=== PATIENT | female | born 1990 | race Caucasian/White ===

== ENCOUNTER 2016-06-02 20:06 | Emergency (ER) | payer OTHER ==
[~2016-06-02] VITALS: Ht 160 cm; Wt 59.1 kg
[2016-06-02 20:08] VITALS: TEMP 97.8
[2016-06-02] MEDS ORDERED: PRENATAL1 TA7 PO (20:12)
[2016-06-02] MEDS ORDERED: ZYRTEC ALLERGY10 MG PO (20:13)
[2016-06-02 20:51] LABS: BASO # 0.1 (0.0-0.2); BASO % 0.9 % (0.0-2.0); EOS # 0.5 (0.0-0.7); EOS % 3.6 % (0-4.0); GRAN # 7.4 (1.4-6.5); GRAN % 58.5 % (42.2-75.2); HEMATOCRIT 41.8 % (37.0-47.0); HEMOGLOBIN 14.1 g/dl (12.5-16.0); LYMPH # 3.7 (1.2-3.4); LYMPH % 29.3 % (20.0-51.0); MEAN CELL VOLUME 91 fl (80.0-100.0); MEAN CORPUSCULAR HEMOGLOBIN 31 pg (27.0-31.0); MEAN CORPUSCULAR HGB CONC 34 g/dl (33.0-37.0); MEAN PLATELET VOLUME 11.3 fl (7.4-10.4); MONO % 7.5 % (1.7-9.3); PLATELET COUNT 260 K/mm3 (130-400); RED BLOOD COUNT 4.59 M/mm3 (4.10-5.30); REDCELL DISTRIBUTION WIDTH-CV 11.9 % (11.5-14.5); WHITE BLOOD COUNT 12.7 K/mm3 (4.8-10.8)
[2016-06-02 21:09] LABS: ADJUSTED CALCIUM 9.5 mg/dL (8.4-10.2); ALANINE AMINOTRANSFERASE 36 U/L (9-52); ALBUMIN 4.4 gm/dL (3.5-5.0); ALKALINE PHOSPHATASE 69 U/L (50-136); ANION GAP 11 mmol/L (7-16); BILIRUBIN,TOTAL 0.7 mg/dL (0.0-1.0); BLOOD UREA NITROGEN 11 mg/dL (7-17); C-REACTIVE PROTEIN < 0.5 mg/dL (0.0-0.9); CALCIUM 9.8 mg/dL (8.4-10.2); CARBON DIOXIDE 27 mmol/L (22-30); CHLORIDE 101 mmol/L (98-107); CREATININE, serum 0.78 mg/dL (0.52-1.25); GLUCOSE 105 mg/dL (74-106); LIPASE 69 U/L (23-300); SODIUM 139 mmol/L (137-145); TOTAL PROTEIN 7.5 gm/dL (6.4-8.2)
[2016-06-02 21:41] LABS: PH 7 (5-8); SQUAMOUS EPITHELIAL 0-2 /hpf; URINE APPEARANCE Cloudy; URINE BACTERIA Rare /hpf; URINE BILIRUBIN Negative (NEGATIVE); URINE BLOOD 2+ (NEGATIVE); URINE COLOR Yellow; URINE GLUCOSE Negative (NEGATIVE); URINE KETONE Negative (NEGATIVE); URINE UROBILINOGEN Negative (NEGATIVE)
[2016-06-02] MEDS ORDERED: FLOMAX 0.40.4 MG/CAP PO (22:05)
[2016-06-02] MEDS ORDERED: CIPRO 500MG TA500 MG PO (22:05)
[2016-06-02] MEDS ORDERED: PERCOCET 325 MG1 TA2 PO (22:05)
[2016-06-02] MEDS ORDERED: ZOFRAN 4MG T4 MG/TAB PO (22:05)
[2016-06-02 22:21] VITALS: BP 125/86; PULSE 62
== END 2016-06-02 22:23 | disposition home or self-care (01) ==
LOC: COL.ER 20:06
PROVIDERS: Emergency Medicine
DX: N13.2 Hydronephrosis with renal and ureteral calculous obstruction (principal)
CPT/HCPCS: J1170; J1885; J2405; J7030; Q9967

== ENCOUNTER 2016-07-12 11:23 | Day surgery (SDC) | payer OTHER ==
[~2016-07-12] VITALS: Ht 160 cm; Wt 50.4 kg
[~2016-07-12 11:23] MED LIST: CIPRO 500MG TA500 MG PO; FLOMAX 0.40.4 MG/CAP PO; PERCOCET 325 MG1 TA2 PO; PRENATAL1 TA7 PO; ZOFRAN 4MG T4 MG/TAB PO; ZYRTEC ALLERGY10 MG PO
[2016-07-12 12:10] VITALS: BP 94/55; PULSE 68; TEMP 97.3
[2016-07-12] MEDS ORDERED: NORCO 325 MG-51 TAB PO (12:19)
[2016-07-12] MEDS ORDERED: IRON TABLETS325 MG PO (12:21)
[2016-07-12 15:30] VITALS: BP 104/67; PULSE 57; TEMP 97.7
[2016-07-12 15:44] VITALS: TEMP 99.5
[2016-07-12 15:45] VITALS: BP 108/54; PULSE 57
[2016-07-12 16:00] VITALS: BP 112/63; PULSE 59
== END 2016-07-12 16:15 | disposition home or self-care (01) ==
LOC: SDCO 11:23
DX: N20.1 Calculus of ureter (principal); F17.210 Nicotine dependence, cigarettes, uncomplicated
CPT/HCPCS: C1769; C2617; J0690; J1100; J1940; J2270; J2405; J2704; J3010; J7120; Q9967

== ENCOUNTER 2016-09-18 20:29 | Emergency (ER) | payer OTHER ==
[~2016-09-18] VITALS: Ht 160 cm; Wt 53.2 kg
[~2016-09-18 20:29] MED LIST changes: +IRON TABLETS325 MG PO; +NORCO 325 MG-51 TAB PO
[2016-09-18 20:51] VITALS: TEMP 98.4
[2016-09-18 21:56] LABS: BASO # 0.1 (0.0-0.2); BASO % 0.6 % (0.0-2.0); EOS # 0.2 (0.0-0.7); EOS % 1.9 % (0-4.0); GRAN # 5.8 (1.4-6.5); GRAN % 56.2 % (42.2-75.2); HEMATOCRIT 40.6 % (37.0-47.0); HEMOGLOBIN 13.5 g/dl (12.5-16.0); LYMPH # 3.4 (1.2-3.4); LYMPH % 33.2 % (20.0-51.0); MEAN CELL VOLUME 95 fl (80.0-100.0); MEAN CORPUSCULAR HEMOGLOBIN 32 pg (27.0-31.0); MEAN CORPUSCULAR HGB CONC 33 g/dl (33.0-37.0); MEAN PLATELET VOLUME 11.3 fl (7.4-10.4); MONO # 0.8 (0.1-0.6); MONO % 7.8 % (1.7-9.3); PLATELET COUNT 236 K/mm3 (130-400); RED BLOOD COUNT 4.26 M/mm3 (4.10-5.30); REDCELL DISTRIBUTION WIDTH-CV 12.6 % (11.5-14.5); WHITE BLOOD COUNT 10.2 K/mm3 (4.8-10.8)
[2016-09-18 22:08] LABS: CALCIUM 9.6 mg/dL (8.4-10.2); CREATININE, serum 0.79 mg/dL (0.52-1.25); POTASSIUM 4.8 mmol/L (3.4-5.0)
[2016-09-18 22:44] LABS: PH 7 (5-8); SQUAMOUS EPITHELIAL None Seen /hpf; URINE APPEARANCE Clear; URINE BACTERIA Rare /hpf; URINE BILIRUBIN Negative (NEGATIVE); URINE BLOOD Negative (NEGATIVE); URINE COLOR Straw; URINE GLUCOSE Negative (NEGATIVE); URINE KETONE Negative (NEGATIVE); URINE RBC 0-2 /hpf; URINE UROBILINOGEN Negative (NEGATIVE); URINE WBC 0-2 /hpf
[2016-09-18] MEDS ORDERED: FLAGYL500 MG PO (23:29)
[2016-09-18 23:48] VITALS: BP 126/65; PULSE 68
[2016-09-19 01:24] LABS: CHLAMYDIA/TRACH by PCR Female NOT DETECTED; NEISSERIA GON by PCR Female NOT DETECTED
== END 2016-09-18 23:48 | disposition home or self-care (01) ==
LOC: COL.ER 20:29
PROVIDERS: Nurse Practitioner
DX: N93.9 Abnormal uterine and vaginal bleeding, unspecified (principal); N76.0 Acute vaginitis

== ENCOUNTER 2021-10-10 06:51 | Emergency (ER) | payer SELFPAY ==
[~2021-10-10] VITALS: Ht 160 cm; Wt 53.2 kg
[~2021-10-10 06:51] MED LIST changes: +FLAGYL500 MG PO
[2021-10-10 07:04] VITALS: TEMP 97.8
[2021-10-10 07:22] LABS: COLLECTION METHOD CLEAN CATCH
[2021-10-10 07:34] LABS: BASO # 0.1 K/mm3 (0.0-0.2); BASO % 1.3 % (0.0-2.0); EOS # 0.2 K/mm3 (0.0-0.7); GRAN # 2.6 K/mm3 (1.4-6.5); GRAN % 47.3 % (42.2-75.2); HEMATOCRIT 39.9 % (37.0-47.0); HEMOGLOBIN 13.1 g/dl (12.5-16.0); LYMPH % 36.7 % (20.0-51.0); MEAN CELL VOLUME 92 fl (80.0-100.0); MEAN CORPUSCULAR HEMOGLOBIN 30 pg (27-31); MEAN CORPUSCULAR HGB CONC 33 g/dl (33.0-37.0); MEAN PLATELET VOLUME 11.7 fl (7.4-10.4); MONO # 0.6 K/mm3 (0.1-0.6); MONO % 10.3 % (1.7-9.3); PLATELET COUNT 205 K/mm3 (130-400); RED BLOOD COUNT 4.32 M/mm3 (4.10-5.30); REDCELL DISTRIBUTION WIDTH-CV 12.8 % (11.5-14.5)
[2021-10-10 07:38] LABS: MUCOUS Present (NOT PRESENT); PH 5 (5-8); URINE APPEARANCE Cloudy (CLEAR/HAZY); URINE BACTERIA None Seen /hpf (NONE SEEN); URINE BILIRUBIN Negative (NEGATIVE); URINE BLOOD 3+ (NEGATIVE); URINE COLOR Yellow (YELLOW); URINE GLUCOSE Negative (NEGATIVE); URINE KETONE Negative (NEGATIVE); URINE LEUKOCYTE ESTERASE Negative (NEGATIVE); URINE NITRATE Negative (NEGATIVE); URINE PROTEIN(semi-quant) 1+ (NEGATIVE); URINE RBC >50 /hpf (0-2); URINE UROBILINOGEN Negative (NEGATIVE)
[2021-10-10 07:52] LABS: ALBUMIN 4.3 gm/dL (3.5-5.0); BILIRUBIN,TOTAL 0.6 mg/dL (0.2-1.2); CALCIUM 8.8 mg/dL (8.4-10.2); CREATININE, serum 0.88 mg/dL (0.57-1.11); POTASSIUM 4.5 mmol/L (3.5-4.5)
[2021-10-10] MEDS ORDERED: NORCO 325 MG-51 TAB PO (08:15)
[2021-10-10] MEDS ORDERED: FLOMAX 0.40.4 MG/CAP PO (08:15)
[2021-10-10] MEDS ORDERED: ZOFRAN ODT4 MG PO (08:15)
[2021-10-10 08:30] VITALS: BP 103/60; PULSE 56
== END 2021-10-10 08:45 | disposition home or self-care (01) ==
LOC: COL.ER 06:51
PROVIDERS: Emergency Medicine
DX: N20.0 Calculus of kidney (principal); Z32.02 Encounter for pregnancy test, result negative; Z28.311 Partially vaccinated for COVID-19
CPT/HCPCS: J1885; J2405; J3010